=== PATIENT | male | born 1970 | race Caucasian/White ===

== ENCOUNTER 2016-09-14 17:30 | Emergency (ER) | payer OTHER ==
[~2016-09-14] VITALS: Ht 180.3 cm; Wt 74.8 kg
--- NOTE | 2016-09-14 18:19 | NUR ---
Pt c/o left sided neck and jaw pain that extends to his left pectoris, left armpit and all the way down his left arm for 4 days, severe at times. Pt denies SOB, dizziness, n/v, no other complaints, no distress noted. Pt states he think it may be a muscle pull but does not remember doing anything to cause it. 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
[2016-09-14 18:27] LABS: BASOPHILS # (AUTO) 0.1 K/uL (0.0-8.0); BASOPHILS % (AUTO) 0.9 % (0.0-2.0); EOSINOPHILS # (AUTO) 0.1 K/uL (0.0-0.7); EOSINOPHILS % (AUTO) 1.8 % (0.0-7.0); HEMATOCRIT 44.7 % (40-50); HEMOGLOBIN 15.3 G/DL (14.0-18.0); LYMPHOCYTES # (AUTO) 2.3 K/UL (0.8-4.8); LYMPHOCYTES % (AUTO) 28.4 % (20.5-51.5); MEAN CORPUSCULAR HGB CONC 34 g/dL (32.0-37.0); MEAN CORPUSCULAR VOLUME 90.8 FL (82.0-92.0); MONOCYTES # (AUTO) 0.5 K/UL (0.1-1.30); MONOCYTES % (AUTO) 6.3 % (0.0-11.0); NEUTROPHILS # (AUTO) 5.2 K/UL (1.8-8.9); NEUTROPHILS % (AUTO) 62.6 % (38.5-71.5); PLATELET COUNT (AUTO) 250 K/UL (150-450); RED BLOOD CELL COUNT(AUTO) 4.92 MIL/UL (4.7-6.1); WHITE BLOOD COUNT (AUTO) 8.2 K/UL (4.0-11.2)
[2016-09-14 18:31] LABS: CREATININE 1.1 mg/dL (0.6-1.3); POTASSIUM 3.7 mmol/L (3.5-5.1)
[2016-09-14 18:36] LABS: BILIRUBIN,DIRECT 0.1 mg/dL (0.0-0.2); BILIRUBIN,TOTAL 0.4 mg/dL (0.2-1.0); TOTAL PROTEIN, SERUM 7.6 g/dL (6.4-8.2)
--- NOTE | 2016-09-14 19:32 | NUR ---
Patient discharged to home in stable conditon. Written and verbal after care instructions given. Patient verbalizes understanding of instructions.
== END 2016-09-14 19:33 | disposition home or self-care (01) ==
LOC: ER 17:30
DX: S16.1XXA Strain of muscle, fascia and tendon at neck level, initial encounter (principal); X50.9XXA Other and unspecified overexertion or strenuous movements or postures, initial encounter; Y93.89 Activity, other specified; Y92.9 Unspecified place or not applicable; Y99.9 Unspecified external cause status
CPT/HCPCS: 36415; 70030-TC; 71010; 85025; 85730; 93005; A4663